=== PATIENT | male | born 1980 | race Caucasian/White ===

== ENCOUNTER 2017-01-09 06:07 | Emergency (ER) | payer MEDICAID, OTHER ==
[2017-01-09 06:14] VITALS: RESP 18; TEMP 99.5; BMI 25.0
--- NOTE | 2017-01-09 06:23 | ED PDOC ---
Arrival/HPI - General Chief Complaint: Cough, Cold, Congestion Time Seen by Provider: 01/09/17 06:12 Historian: Patient - History of Present Illness Narrative History of Present Illness (Text): 01/09/17 06:22 Fozia Dunn is a 36 year old male smoker, whose past medical history include substance abuse, who presents to the Emergency department complaining of nasal and chest congestion since yesterday. Patient also complaining of shortness of breath. Patient reports he last snorted heroin yesterday evening. Patient denies any fever, chills, nausea, vomiting, diarrhea, urinary symptoms, back pain, neck pain, headache, dizziness, or any other complaints. Time/Duration: Other (yesterday) Symptom Onset: Gradual Symptom Course: Unchanged Activities at Onset: Light Context: Home Past Medical History - Provider Review Nursing Documentation Reviewed: Yes - Musculoskeletal/Rheumatological Hx Musculoskeletal Disorders: Yes Hx Fractures: Yes - Psychiatric Hx Substance Use: Yes (heroin) - Surgical History Hx Orthopedic Surgery: Yes (right knee) Family/Social History - Physician Review Nursing Documentation Reviewed: Yes Family/Social History: Unknown Family HX Smoking Status: Heavy Smoker > 10 Cigarettes Daily Hx Alcohol Use: No Hx Substance Use: Yes (heroin) Allergies/Home Meds Allergies/Adverse Reactions: Allergies No Known Allergies Allergy (Unverified 10/10/13 15:30) Review of Systems - Physician Review All systems were reviewed & negative as marked: Yes - Review of Systems Constitutional: Normal. absent: Fevers Eyes: Normal ENT: Other (+nasal congestion) Respiratory: SOB, Cough, Other (+chest congestino) Gastrointestinal: Normal. absent: Abdominal Pain, Diarrhea, Nausea, Vomiting Genitourinary Male: Normal. absent: Dysuria, Frequency, Hematuria, Urinary Output Changes Musculoskeletal: Normal. absent: Back Pain, Neck Pain Skin: Normal. absent: Rash Neurological: Normal. absent: Headache, Dizziness Endocrine: Normal Hemo/Lymphatic: Normal Psychiatric: Normal Physical Exam Vital Signs Reviewed: Yes Vital Signs Temp Pulse Resp BP Pulse Ox 01/09/17 09:11 97 H 18 108/60 94 L 01/09/17 07:05 95 H 18 111/48 L 100 01/09/17 06:13 99.5 F 83 18 140/75 92 L Temperature: Afebrile Blood Pressure: Normal Pulse: Regular Respiratory Rate: Normal Appearance: Positive for: Well-Appearing, Non-Toxic, Comfortable Pain Distress: None Mental Status: Positive for: Alert and Oriented X 3 - Systems Exam Head: Present: Atraumatic, Normocephalic Pupils: Present: PERRL Extroacular Muscles: Present: EOMI Conjunctiva: Present: Normal Mouth: Present: Moist Mucous Membranes Neck: Present: Normal Range of Motion Respiratory/Chest: Present: Wheezes. No: Respiratory Distress, Accessory Muscle Use Cardiovascular: Present: Regular Rate and Rhythm, Normal S1, S2. No: Murmurs Abdomen: Present: Normal Bowel Sounds. No: Tenderness, Distention, Peritoneal Signs Back: Present: Normal Inspection Upper Extremity: Present: Normal Inspection. No: Cyanosis, Edema Lower Extremity: Present: Normal Inspection. No: Edema Neurological: Present: GCS=15, CN II-XII Intact, Speech Normal Skin: Present: Warm, Dry, Normal Color. No: Rashes Psychiatric: Present: Alert, Oriented x 3, Normal Insight, Normal Concentration Medical Decision Making ED Course and Treatment: 01/09/17 06:23 Impression: 36 year old male complaining of nasal/chest congestion and shortness of breath since yesterday evening. Plan: -- Duoneb -- Solu-medrol -- Reassess and disposition Progress Notes: - Lab Interpretations Lab Results: 01/09/17 07:20 01/09/17 07:20 Lab Results 01/09/17 07:20: Sodium 137, Potassium 3.5 L, Chloride 99, Carbon Dioxide 29, Anion Gap 13, BUN 11, Creatinine 0.7 L, Est GFR ( Amer) > 60, Est GFR ( Non-Af Amer) > 60, Random Glucose 221 H, Calcium 9.1, Total Bilirubin 0.5, AST 16 L, ALT 24, Alkaline Phosphatase 49, Total Protein 6.5, Albumin 4.0, Globulin 2.4, Albumin/Globulin Ratio 1.7 01/09/17 07:20: WBC 9.7, RBC 5.58, Hgb 14.7, Hct 44.5, MCV 79.7 L, MCH 26.3, MCHC 33.0, RDW 17.0 H, Plt Count 298, MPV 10.7, Gran % 59.1, Lymph % (Auto) 18.3 L, [place] % (Auto) 14.5 H, Eos % (Auto) 7.7 H, Baso % (Auto) 0.4, Gran # 5.70 , Lymph # 1.8, [place] # 1.4 H, Eos # 0.7, Baso # 0.04 - RAD Interpretation Radiology Orders: 01/09/17 07:17 CHEST PORTABLE [RAD] Stat - Medication Orders Current Medication Orders: Discontinued Medications Albuterol/Ipratropium (Duoneb 3 Mg/0.5 Mg (3 Ml) Ud) 3 ml IH Q15M JENNIFER Stop: 01/09/17 07:01 Last Admin: 01/09/17 07:01 Dose: 3 ml Methylprednisolone (Solu-Medrol) 125 mg IVP ONCE ONE Stop: 01/09/17 06:25 Last Admin: 01/09/17 06:45 Dose: 125 mg IVP Administration Document 01/09/17 06:45 OCS (Rec: 01/09/17 06:45 OCS [id number]) Charges for Administration # of IVP Administrations 1 - Transfer of Care Patient signed out to Dr:: ab candelaria and dispo - Scribe Statement The provider has reviewed the documentation as recorded by the Scribbrandon Mcfarland Provider Scribe Attestation: All medical record entries made by the Scribe were at my direction and personally dictated by me. I have reviewed the chart and agree that the record accurately reflects my personal performance of the history, physical exam, medical decision making, and the department course for this patient. I have also personally directed, reviewed, and agree with the discharge instructions and disposition. Disposition/Present on Arrival - Present on Arrival Any Indicators Present on Arrival: No History of DVT/PE: No History of Uncontrolled Diabetes: No Urinary Catheter: No History of Decub. Ulcer: No History Surgical Site Infection Following: None - Disposition Have Diagnosis and Disposition been Completed?: Yes Diagnosis: Chest congestion Disposition: HOME/ ROUTINE Disposition Time: 07:00 Condition: STABLE Discharge Instructions (ExitCare): Acute Bronchitis (ED) Additional Instructions: please follow up with your doctor. return to er with worsening symptoms or concerns. Prescriptions: Nebulizer Accessories [Adult Aerosol Mask] 1 each MC Q6 PRN #1 each PRN Reason: Wheezing Albuterol 0.083% [Albuterol 0.083% Inhal Alyssa (2.5 mg/3 ml) UD] 2.5 mg IH Q6 PRN #20 neb PRN Reason: Wheezing Mask, Face [Nebulizer Aerosol Mask Adult] 1 dev XX PRN PRN #1 dev PRN Reason: Wheezing Prednisone 50 mg PO DAILY #5 tablet Forms: [employer] ([place])
[2017-01-09] MEDS: Albuterol-Ipratrop 3 mg / 0.5 (3 ml) UD IH SCH ×3 (06:38→07:01)
--- NOTE | 2017-01-09 07:24 | ED PDOC ---
Physical Exam Vital Signs Reviewed: Yes Vital Signs Temp Pulse Resp BP Pulse Ox 01/09/17 09:11 97 H 18 108/60 94 L 01/09/17 07:05 95 H 18 111/48 L 100 01/09/17 06:13 99.5 F 83 18 140/75 92 L Temperature: Afebrile Blood Pressure: Normal Pulse: Regular Respiratory Rate: Normal Medical Decision Making ED Course and Treatment: 01/09/17 07:23 Patient endorsed to me by Dr. Lisa at 07:00, pending labs and chest xray. Report Date : 01/09/2017 07:57:13 Procedure: Chest xray Dictator : Nicolás Cardoso MD IMPRESSION: No active disease. 01/09/17 09:05 On re-evaluation, patient feels better and is in no acute distress. I have discussed the results and plan with the patient, who expresses understanding. Patient in agreement with plan to be discharged home. Patient is stable for discharge. Patient was instructed to follow up with physician or return if symptoms worsen or new concerning symptoms arise. - Lab Interpretations Lab Results: 01/09/17 07:20 01/09/17 07:20 Lab Results 01/09/17 07:20: Sodium 137, Potassium 3.5 L, Chloride 99, Carbon Dioxide 29, Anion Gap 13, BUN 11, Creatinine 0.7 L, Est GFR ( Amer) > 60, Est GFR ( Non-Af Amer) > 60, Random Glucose 221 H, Calcium 9.1, Total Bilirubin 0.5, AST 16 L, ALT 24, Alkaline Phosphatase 49, Total Protein 6.5, Albumin 4.0, Globulin 2.4, Albumin/Globulin Ratio 1.7 01/09/17 07:20: WBC 9.7, RBC 5.58, Hgb 14.7, Hct 44.5, MCV 79.7 L, MCH 26.3, MCHC 33.0, RDW 17.0 H, Plt Count 298, MPV 10.7, Gran % 59.1, Lymph % (Auto) 18.3 L, [place] % (Auto) 14.5 H, Eos % (Auto) 7.7 H, Baso % (Auto) 0.4, Gran # 5.70 , Lymph # 1.8, [place] # 1.4 H, Eos # 0.7, Baso # 0.04 - RAD Interpretation Radiology Orders: 01/09/17 07:17 CHEST PORTABLE [RAD] Stat - Medication Orders Current Medication Orders: Discontinued Medications Albuterol/Ipratropium (Duoneb 3 Mg/0.5 Mg (3 Ml) Ud) 3 ml IH Q15M JENNIFER Stop: 01/09/17 07:01 Last Admin: 01/09/17 07:01 Dose: 3 ml Methylprednisolone (Solu-Medrol) 125 mg IVP ONCE ONE Stop: 01/09/17 06:25 Last Admin: 01/09/17 06:45 Dose: 125 mg IVP Administration Document 01/09/17 06:45 OCS (Rec: 01/09/17 06:45 OCS [id number]) Charges for Administration # of IVP Administrations 1 - Scribe Statement The provider has reviewed the documentation as recorded by the Jonibbrandon Ann Provider Scribe Attestation: All medical record entries made by the Scribe were at my direction and personally dictated by me. I have reviewed the chart and agree that the record accurately reflects my personal performance of the history, physical exam, medical decision making, and the department course for this patient. I have also personally directed, reviewed, and agree with the discharge instructions and disposition. Disposition/Present on Arrival - Present on Arrival Any Indicators Present on Arrival: No History of DVT/PE: No History of Uncontrolled Diabetes: No Urinary Catheter: No History of Decub. Ulcer: No History Surgical Site Infection Following: None - Disposition Have Diagnosis and Disposition been Completed?: Yes Diagnosis: Chest congestion Disposition: HOME/ ROUTINE Disposition Time: 09:05 Condition: STABLE Discharge Instructions (ExitCare): Acute Bronchitis (ED) Additional Instructions: please follow up with your doctor. return to er with worsening symptoms or concerns. Prescriptions: Albuterol 0.083% [Albuterol 0.083% Inhal Alyssa (2.5 mg/3 ml) UD] 2.5 mg IH Q6 PRN #20 neb PRN Reason: Wheezing Mask, Face [Nebulizer Aerosol Mask Adult] 1 dev XX PRN PRN #1 dev PRN Reason: Wheezing Nebulizer Accessories [Adult Aerosol Mask] 1 each MC Q6 PRN #1 each PRN Reason: Wheezing Prednisone 50 mg PO DAILY #5 tablet Forms: [employer] (French)
[2017-01-09 07:36] LABS: BASO # 0.04 K/mm3 (0.0-2.0); BASO % 0.4 % (0.0-3.0); EOS # 0.7 (0.0-0.7); EOS % 7.7 % (1.5-5.0); GRAN # 5.7 (1.4-6.5); GRAN % 59.1 % (50.0-68.0); HEMATOCRIT 44.5 % (42.0-52.0); LYMPH # 1.8 (1.2-3.4); LYMPH % 18.3 % (22.0-35.0); MEAN CELL VOLUME 79.7 fl (80.0-105.0); MEAN CORPUSCULAR HEMOGLOBIN 26.3 pg (25.0-35.0); MEAN PLATELET VOLUME 10.7 fl (7.0-11.0); MONO # 1.4 (0.1-0.6); MONO % 14.5 % (1.0-6.0); WHITE BLOOD COUNT 9.7 10^3/ul (4.5-11.0)
--- NOTE | 2017-01-09 07:59 | RAD ---
HISTORY: cough COMPARISON: Not available FINDINGS: LUNGS: Minimal linear scar/ atelectasis at left base. No infiltrate elsewhere. PLEURA: No significant pleural effusion identified, no pneumothorax apparent. CARDIOVASCULAR: Normal. OSSEOUS STRUCTURES: No significant abnormalities. VISUALIZED UPPER ABDOMEN: Normal. OTHER FINDINGS: Left basilar linear scar/atelectasis peer IMPRESSION: No active disease.
[2017-01-09 08:09] LABS: ALB/GLOB RATIO 1.7 (1.1-1.8); ALKALINE PHOSPHATASE 49 U/L (38-126); ALT/SGPT 24 U/L (7-56); AST/SGOT 16 U/L (17-59); BILIRUBIN,TOTAL 0.5 mg/dL (0.2-1.3); BLOOD UREA NITROGEN 11 mg/dL (7-21); CALCIUM 9.1 mg/dL (8.4-10.5); CARBON DIOXIDE 29 mmol/L (21-33); CHLORIDE 99 mmol/L (95-110); GFR AFRICAN-AMERICAN > 60; GLUCOSE,RANDOM 221 mg/dL (70-110); POTASSIUM 3.5 mmol/L (3.6-5.0); SODIUM 137 mmol/L (132-148); TOTAL PROTEIN 6.5 g/dL (5.8-8.3)
[2017-01-09 09:11] VITALS: BP 108/60; PULSE 97; O2SAT 94
== END 2017-01-09 09:11 | disposition home or self-care (01) ==
LOC: ED 06:07
DX: R09.89 Other specified symptoms and signs involving the circulatory and respiratory systems (principal); F17.210 Nicotine dependence, cigarettes, uncomplicated
CPT/HCPCS: 71010; 80053; 85025; 96374; 99283; J2930

== ENCOUNTER 2017-03-16 00:14 | Emergency (ER) | payer MEDICAID, OTHER ==
[2017-03-16 00:14] VITALS: BMI 25.0
[2017-03-16] MEDS ORDERED: Naloxone 0.4 mg/ml Inj (Adult) IVP STA (00:39)
[2017-03-16] MEDS ORDERED: Sodium Chloride 0.9% 1,000 ML IV STA (00:40)
[2017-03-16 00:58] LABS: BASO # 0.05 K/mm3 (0.0-2.0); BASO % 0.4 % (0.0-3.0); EOS # 0.4 (0.0-0.7); EOS % 3.4 % (1.5-5.0); GRAN # 9.43 (1.4-6.5); GRAN % 76.3 % (50.0-68.0); HEMATOCRIT 40.9 % (42.0-52.0); LYMPH # 1.5 (1.2-3.4); MEAN CELL VOLUME 85.6 fl (80.0-105.0); MEAN CORPUSCULAR HEMOGLOBIN 27.8 pg (25.0-35.0); MEAN CORPUSCULAR HGB CONC 32.5 g/dl (31.0-37.0); MEAN PLATELET VOLUME 10.3 fl (7.0-11.0); MONO % 7.9 % (1.0-6.0); RED CELL DISTRIBUTION WIDTH 17.8 % (11.5-14.5); WHITE BLOOD COUNT 12.4 10^3/ul (4.5-11.0)
[2017-03-16 01:12] LABS: ALB/GLOB RATIO 1.5 (1.1-1.8); ALKALINE PHOSPHATASE 43 U/L (38-126); ALT/SGPT 23 U/L (7-56); AST/SGOT 32 U/L (17-59); BILIRUBIN,TOTAL 0.2 mg/dL (0.2-1.3); BLOOD UREA NITROGEN 18 mg/dL (7-21); CALCIUM 9.4 mg/dL (8.4-10.5); CARBON DIOXIDE 30 mmol/L (21-33); CHLORIDE 100 mmol/L (98-107); GFR AFRICAN-AMERICAN > 60; GLUCOSE,RANDOM 134 mg/dL (70-110); POTASSIUM 4.1 mmol/L (3.6-5.0); SODIUM 140 mmol/L (132-148); TOTAL PROTEIN 7.2 g/dL (5.8-8.3)
--- NOTE | 2017-03-16 01:28 | ED PDOC ---
Arrival/HPI - General Historian: Patient - History of Present Illness Symptom Onset: Gradual Symptom Course: Unchanged Activities at Onset: Light Context: Home <Brittany Alfred - Last Filed: 03/16/17 02:28> <Hamilton Peterson - Last Filed: 03/16/17 07:07> - General Chief Complaint: Substance Abuse Time Seen by Provider: 03/16/17 00:34 - History of Present Illness Narrative History of Present Illness (Text): 03/16/17 00:35 36 year old male smoker, whose past medical history include substance abuse, who presents to the Emergency department stating he could not sleep this evening , so he decided to take heroin, 2 Risperidone, 2 Gabapentin, and 3 Mcconnico tonight. Patient currently complaining of headache but otherwise denies any chest pain, shortness of breath, abdominal pain, nausea, vomiting, dizziness, or any other complaints. Patient also denies any suicidal ideation/homicidal ideation, anxiety, or trauma/injury. (Brittany Alfred) Past Medical History - Provider Review Nursing Documentation Reviewed: Yes - Infectious Disease Hx of Infectious Diseases: None - Cardiac Hx Hypertension: Yes - Pulmonary Hx Tuberculosis: No - Neurological Hx Seizures: No - Hematological/Oncological Hx Cancer: No - Musculoskeletal/Rheumatological Hx Musculoskeletal Disorders: Yes Hx Fractures: Yes - Genitourinary/Gynecological Hx Sexually Transmitted Diseases: No - Psychiatric Hx Depression: Yes Hx Substance Use: Yes (heroin) - Surgical History Hx Orthopedic Surgery: Yes (right knee) - Anesthesia Hx Anesthesia: Yes Hx Anesthesia Reactions: No Hx Malignant Hyperthermia: No - Suicidal Assessment Feels Threatened In Home Enviroment: No <Brittany Alfred - Last Filed: 03/16/17 02:28> Family/Social History - Physician Review Nursing Documentation Reviewed: Yes Family/Social History: Unknown Family HX Smoking Status: Heavy Smoker > 10 Cigarettes Daily Hx Alcohol Use: No Hx Substance Use: Yes (heroin) <Brittany Alfred - Last Filed: 03/16/17 02:28> Allergies/Home Meds <Brittany Alfred - Last Filed: 03/16/17 02:28> <Hamilton Peterson - Last Filed: 03/16/17 07:07> Allergies/Adverse Reactions: Allergies No Known Allergies Allergy (Verified 03/16/17 00:43) Home Medications: Home Meds Medication Instructions Recorded Confirmed Unobtainable 03/16/17 03/16/17 Review of Systems - Physician Review All systems were reviewed & negative as marked: Yes - Review of Systems Constitutional: Other (+insomnia). absent: Fevers Eyes: Normal ENT: Normal Respiratory: Normal. absent: SOB, Cough Cardiovascular: Normal. absent: Chest Pain Gastrointestinal: Normal. absent: Abdominal Pain, Diarrhea, Nausea, Vomiting Genitourinary Male: Normal. absent: Dysuria, Frequency, Hematuria, Urinary Output Changes Musculoskeletal: Normal. absent: Back Pain, Neck Pain Skin: Normal. absent: Rash Neurological: Normal. absent: Headache, Dizziness Endocrine: Normal Hemo/Lymphatic: Normal Psychiatric: Normal. absent: Depression, Suicidal Ideation <Brittany Alfred T - Last Filed: 03/16/17 02:28> Physical Exam Vital Signs Reviewed: Yes Temperature: Afebrile Blood Pressure: Normal Pulse: Regular Respiratory Rate: Normal Appearance: Positive for: Well-Appearing, Non-Toxic, Comfortable Pain Distress: None Mental Status: Positive for: other (Alert, drowsy but easily arousbale, speaking full sentences) - Systems Exam Head: Present: Atraumatic, Normocephalic Pupils: Present: Pinpoint Extroacular Muscles: Present: EOMI Conjunctiva: Present: Normal Mouth: Present: Moist Mucous Membranes Neck: Present: Normal Range of Motion Respiratory/Chest: Present: Clear to Auscultation, Good Air Exchange. No: Respiratory Distress, Accessory Muscle Use Cardiovascular: Present: Regular Rate and Rhythm, Normal S1, S2. No: Murmurs Abdomen: Present: Normal Bowel Sounds. No: Tenderness, Distention, Peritoneal Signs Back: Present: Normal Inspection Upper Extremity: Present: Normal Inspection. No: Cyanosis, Edema Lower Extremity: Present: Normal Inspection. No: Edema Neurological: Present: GCS=15, CN II-XII Intact, Speech Normal Skin: Present: Warm, Dry, Normal Color. No: Rashes Psychiatric: Present: Alert, Other (Alert, drowsy but easily arousbale, speaking full sentences) <Brittany Alfred T - Last Filed: 03/16/17 02:28> Vital Signs Temp Pulse Resp BP Pulse Ox 03/16/17 07:00 98.3 F 66 16 112/82 98 03/16/17 05:09 98.3 F 72 16 110/53 L 95 03/16/17 04:00 98.2 F 81 15 110/62 99 03/16/17 02:14 98.2 F 88 18 109/72 98 03/16/17 00:38 98.1 F 86 17 115/53 L 98 03/16/17 00:14 98.2 F 79 17 107/56 L 98 Medical Decision Making - Lab Interpretations I have reviewed the lab results: Yes - EKG Interpretation Interpreted by ED Physician: Yes Type: 12 lead EKG <Brittany Alfred - Last Filed: 03/16/17 02:28> - Lab Interpretations I have reviewed the lab results: Yes - RAD Interpretation Dental Service Chief: ED Physician, Radiologist - EKG Interpretation Interpreted by ED Physician: Yes Type: 12 lead EKG <Hamilton Peterson - Last Filed: 03/16/17 07:07> ED Course and Treatment: 03/16/17 00:35 Impression: 36 year old male presents after taking heroin, 2 Risperidone, 2 Gabapentin, and 3 Mcconnico for insomnia tonight. Plan: -- CT Head w/o contrast -- EKG: nsr at 70b/m no st elevations, normal intervals. -- CXR -- CBC, CMP, CPK -- Acetaminophen level -- Alcohol level -- Salicylate -- Urinalysis, urine drug screen -- Narcan -- head ct -- PES evaluation -- Reassess and disposition Prior Visits: Notes and results from previous visits were reviewed. Progress Notes: poison control contacted; they advised supportive measures. 03/16/17 02:28 after narcan; pt more alert. pt refused CT of head and chest xray. case signed out to dr. peterson pending sobriety and PES evaluation, re- evaluation and head ct. (Brittany Alfred) 03/16/17 03:36 EKG reviewed, NSR at [address]-segment elevations or depressions, no T-wave inversions, normal intervals. 03/16/17 05:27 CXR reviewed, shows no acute processes. 03/16/17 06:11 CT Head shows: Brain: No significant white matter disease. No hemorrhage. Ventricles: Unremarkable. No ventriculomegaly. Bones/joints: Nonacute nasal bone fractures. Nonacute nasal septal fracture. Soft tissues: No significant acute findings. Sinuses: Moderate fluid in the ethmoid air cells bilaterally, perhaps sinusitis. Mastoid air cells: Partial opacification, fluid in the mastoid air cells and in the middle ear cavities bilaterally, correlate with otomastoiditis. Nasopharynx: Fluid is present in the nasal cavity. IMPRESSION: No acute intracranial findings. Otomastoiditis bilaterally. Sinus disease. Clinical correlation and followup is recommended as clinically warranted. Pt.states no sinus or mastoid discomfort or tenderness/CT reflects probable chronic disease.Will treat with oral antibiotic rx. 03/16/17 07:[address] Leung, pending PES evaluation, re-assessment, and final disposition. (Hamilton Peterson) - Lab Interpretations Lab Results: 03/16/17 00:30 03/16/17 00:30 Lab Results 03/16/17 05:00: Mcconnico 0.7 03/16/17 03:15: Urine Opiates Screen Positive H, Urine Methadone Screen Negative , Ur Barbiturates Screen Negative, Ur Phencyclidine Scrn Negative, Ur Amphetamines Screen Negative, U Benzodiazepines Scrn Negative, U Oth Cocaine Metabols Negative, U Cannabinoids Screen Negative 03/16/17 03:15: Urine Color Yellow, Urine Appearance Clear, Urine pH 6.0, Ur Specific [place] 1.015, Urine Protein Negative, Urine Glucose (UA) Negative, Urine Ketones Negative, Urine Blood Negative, Urine Nitrate Negative, Urine Bilirubin Negative, Urine Urobilinogen 0.2, Ur Leukocyte Esterase Negative 03/16/17 00:30: Mcconnico 0.4 L 03/16/17 00:30: WBC 12.4 H D, RBC 4.78, Hgb 13.3 L, Hct 40.9 L, MCV 85.6 D, MCH 27.8, MCHC 32.5, RDW 17.8 H, Plt Count 313, MPV 10.3, Gran % 76.3 H, Lymph % (Auto) 12.0 L, [place] % (Auto) 7.9 H, Eos % (Auto) 3.4, Baso % (Auto) 0.4, Gran # 9.43 H, Lymph # 1.5, [place] # 1.0 H, Eos # 0.4, Baso # 0.05 03/16/17 00:30: Alcohol, Quantitative < 10 03/16/17 00:30: Salicylates < 1 L, Acetaminophen < 10.0 L 03/16/17 00:30: Sodium 140, Potassium 4.1, Chloride 100, Carbon Dioxide 30, Anion Gap 15, BUN 18, Creatinine 1.1, Est GFR ( Amer) > 60, Est GFR (Non- Af Amer) > 60, Random Glucose 134 H, Calcium 9.4, Total Bilirubin 0.2, AST 32, ALT 23, Alkaline Phosphatase 43, Total Creatine Kinase 156, Total Protein 7.2, Albumin 4.3, Globulin 2.9, Albumin/Globulin Ratio 1.5 - RAD Interpretation Radiology Orders: 03/16/17 00:35 CHEST PORTABLE [RAD] Stat 03/16/17 00:41 HEAD W/O CONTRAST [CT] Stat - Medication Orders Current Medication Orders: Discontinued Medications Sodium Chloride (Sodium Chloride 0.9%) 1,000 mls @ 999 mls/hr IV .Q1H1M STA Stop: 03/16/17 01:40 Last Admin: 03/16/17 04:31 Dose: 999 mls/hr eMAR Start Stop Document 03/16/17 04:31 AB (Rec: 03/16/17 04:31 AB [facility] [place] [facility] [id number] Intravenous Solution Start Date 03/16/17 Start Time 00:40 End Date 03/16/17 End time 01:40 Total Infusion Time 60 Naloxone HCl (Narcan) 0.4 mg IVP STAT STA Stop: 03/16/17 00:40 Last Admin: 03/16/17 00:40 Dose: 0.4 mg IVP Administration Document 03/16/17 00:40 AB (Rec: 03/16/17 01:00 AB [facility] [place] [facility] [id number] Charges for Administration # of IVP Administrations 1 - Scribe Statement The provider has reviewed the documentation as recorded by the Scribe <Brittany Alfred - Last Filed: 03/16/17 02:28> <Hamilton Peterson - Last Filed: 03/16/17 07:07> - Scribe Statement Saritha Mcfarland All medical record entries made by the Scribe were at my direction and personally dictated by me. I have reviewed the chart and agree that the record accurately reflects my personal performance of the history, physical exam, medical decision making, and the department course for this patient. I have also personally directed, reviewed, and agree with the discharge instructions and disposition. (Brittany Alfred) Disposition/Present on Arrival - Present on Arrival History of DVT/PE: No History of Uncontrolled Diabetes: No Urinary Catheter: No History of Decub. Ulcer: No History Surgical Site Infection Following: None <Brittany Alfred - Last Filed: 03/16/17 02:28> - Present on Arrival Any Indicators Present on Arrival: No - Disposition Have Diagnosis and Disposition been Completed?: No Disposition Time: 07:00 <Hamilton Peterson - Last Filed: 03/16/17 07:07> - Disposition Diagnosis: Psychotic disorder, Drug abuse, Sinusitis, Mastoiditis Patient Problems: Current Active Problems Problem Status Onset Drug abuse Acute Psychotic disorder Acute Condition: STABLE Forms: [employer] ([employer] [place])
[2017-03-16 03:29] LABS: URINE BILIRUBIN NEGATIVE (NEGATIVE); URINE BLOOD NEGATIVE (NEGATIVE); URINE GLUCOSE (UA) NEGATIVE (NEGATIVE); URINE KETONE NEGATIVE (NEGATIVE); URINE LEUKOCYTE ESTERASE NEGATIVE Leu/uL (NEGATIVE); URINE PROTEIN NEGATIVE mg/dL (<30 mg/dL); URINE UROBILINOGEN 0.2 E.U./dL (<1 E.U./dL)
[2017-03-16 03:31] LABS: URINE APPEARANCE CLEAR (CLEAR); URINE COLOR YELLOW (YELLOW)
[2017-03-16 05:10] VITALS: RESP 16; TEMP 98.3
[2017-03-16] MEDS ORDERED: Amoxicillin-Clav 875-125 mg Tab PO STA (07:04)
--- NOTE | 2017-03-16 09:10 | RAD ---
HISTORY: overdose COMPARISON: 01/09/2017 FINDINGS: LUNGS: No active pulmonary disease. PLEURA: No significant pleural effusion identified, no pneumothorax apparent. CARDIOVASCULAR: Normal. OSSEOUS STRUCTURES: No significant abnormalities. VISUALIZED UPPER ABDOMEN: Normal. OTHER FINDINGS: None. IMPRESSION: No active disease.
[2017-03-16 10:17] VITALS: BP 115/80; PULSE 68; O2SAT 99
--- NOTE | 2017-03-16 10:44 | CT ---
PROCEDURE: CT HEAD WITHOUT CONTRAST. HISTORY: headache/overdose COMPARISON: None available. TECHNIQUE: Axial computed tomography images were obtained through the head/brain without intravenous contrast. Radiation dose: Total exam DLP = 823 mGy-cm. This CT exam was performed using one or more of the following dose reduction techniques: Automated exposure control, adjustment of the mA and/or kV according to patient size, and/or use of iterative reconstruction technique. FINDINGS: HEMORRHAGE: No intracranial hemorrhage. BRAIN: No mass effect or edema. No atrophy or chronic microvascular ischemic changes. VENTRICLES: Unremarkable. No hydrocephalus. CALVARIUM: Unremarkable. PARANASAL SINUSES: Partial opacification of the ethmoid air cells and mucosal thickening in the nasal cavity MASTOID AIR CELLS: There is bilateral otomastoiditis. OTHER FINDINGS: The report concurs with the preliminary [facility] report IMPRESSION: No acute intracranial findings. Bilateral otomastoiditis
--- NOTE | 2017-03-16 17:13 | CARD ---
APPROVED REPORT EKG Measurement Heart [id number] <Conclusion> Normal sinus rhythm Normal ECG
== END 2017-03-16 09:50 | disposition home or self-care (01) ==
LOC: ED 00:14
DX: F23 Brief psychotic disorder (principal); F19.10 Other psychoactive substance abuse, uncomplicated; H70.90 Unspecified mastoiditis, unspecified ear; J32.9 Chronic sinusitis, unspecified; I10 Essential (primary) hypertension; F17.210 Nicotine dependence, cigarettes, uncomplicated
CPT/HCPCS: 70450; 71010; 80053; 80178; 80320; 80324; 80329; 80345; 80346; 80349; 80353; 80358; 80361; 81003; 82550; 83992; 85025; 90791; 93005; 96361; 96374; 99285; J2310; J7040